=== PATIENT | male | born 1965 | race Hispanic/Latino ===

== ENCOUNTER 2017-05-03 08:50 | Emergency (ER) | payer OTHER ==
[~2017-05-03] VITALS: Ht 165.1 cm; Wt 70.0 kg
[2017-05-03] MEDS ORDERED: METFORMIN500 MG PO (09:06)
[2017-05-03] MEDS ORDERED: ENALAPRIL5 MG PO (09:07)
[2017-05-03] MEDS ORDERED: BACTRIM DS1 TAB PO (09:23)
[2017-05-03] MEDS ORDERED: TRAMADOL HYDROC50 MG PO (09:23)
[2017-05-03 09:33] VITALS: BP 191/112
== END 2017-05-03 09:33 | disposition home or self-care (01) | DRG 603 ==
LOC: ED 08:50
DX: L03.115 Cellulitis of right lower limb (principal); I10 Essential (primary) hypertension; E11.9 Type 2 diabetes mellitus without complications; F17.210 Nicotine dependence, cigarettes, uncomplicated

== ENCOUNTER 2023-05-07 13:50 | Emergency (ER) | payer BC ==
[~2023-05-07] VITALS: Ht 165.1 cm; Wt 62.0 kg
[~2023-05-07 13:50] MED LIST: BACTRIM DS1 TAB PO; ENALAPRIL5 MG PO; METFORMIN500 MG PO; TRAMADOL HYDROC50 MG PO
[2023-05-07 14:43] VITALS: BP 136/72
[2023-05-07 14:46] VITALS: BP 118/72
[2023-05-07] MEDS ORDERED: AMOX/K CLAV875 M1 PO (15:56)
[2023-05-07 16:34] VITALS: BP 118/72
== END 2023-05-07 16:50 | disposition home or self-care (01) | DRG 816 ==
LOC: ED 13:50
DX: R59.0 Localized enlarged lymph nodes (principal); I10 Essential (primary) hypertension; E11.9 Type 2 diabetes mellitus without complications; F17.200 Nicotine dependence, unspecified, uncomplicated; Z79.84 Long term (current) use of oral hypoglycemic drugs

== ENCOUNTER 2023-06-29 08:27 | Day surgery (SDC) | payer BC ==
[~2023-06-29] VITALS: Ht 165.1 cm; Wt 61.7 kg
[~2023-06-29 08:27] MED LIST changes: +AMLODIPINE BESY10 MG PO; +AMOX/K CLAV875 M1 PO; +LISINOPRIL10 MG PO
[2023-06-29] MEDS ORDERED: PERCOCET 5/325M1 TAB PO (09:50)
[2023-06-29 12:15] VITALS: BP 146/76
== END 2023-06-29 12:30 | disposition home or self-care (01) | DRG 352 ==
LOC: ORM 08:27
PROVIDERS: ATTEND Surgery
PROC: 0YU64JZ Supplement Left Inguinal Region with Synthetic Substitute, Percutaneous Endoscopic Approach (ICD-10-PCS; principal; 2023-06-29)
DX: K40.90 Unilateral inguinal hernia, without obstruction or gangrene, not specified as recurrent (principal); D17.6 Benign lipomatous neoplasm of spermatic cord; I10 Essential (primary) hypertension; E11.9 Type 2 diabetes mellitus without complications; F17.200 Nicotine dependence, unspecified, uncomplicated
CPT/HCPCS: C1781; J0690